=== PATIENT | female | born 1995 | race African-American/Black ===

== ENCOUNTER 2023-12-03 09:12 | Outpatient (CLI) | payer BC, SELFPAY | END 2023-12-03 23:59 | disposition home or self-care (01) | LOC: LAB.DROPOF 12-06 09:12 | PROVIDERS: PCP Nurse Practitioner Family; Visit Provider Nurse Practitioner Family | DX: N39.0 Urinary tract infection, site not specified (principal) | CPT/HCPCS: 87086 ==